=== PATIENT | male | born 1960 | race Caucasian/White ===

== ENCOUNTER 2023-02-11 03:41 | Day surgery (SDC) | payer OTHER, SELFPAY ==
[2023-01-28 14:05] VITALS: BMI 24.1
[2023-02-11 11:42] VITALS: BP 125/71; PULSE 62; RESP 18; TEMP 36.1; O2SAT 100
[2023-02-11] MEDS: LACTATED RINGERS 1,000 ML 150 ML IV CONT (11:51)
--- NOTE | 2023-02-11 12:13 | PM.HPGS ---
History of Present Illness History of Present Illness Consent: Risks, benefits, and alternatives have been discussed and questions answered. Patient agrees to proceed with procedure. Chief complaint: neoplasm screening Narrative: Carlos Deluca is a 62 year old male Referred for colon cancer screening. His last colonoscopy 12 years ago was unremarkable. Review of Systems Review of Systems: All systems reviewed & are unremarkable except as noted in HPI and below PMFSH Past Medical History Medical History Chronic pain CTS (carpal tunnel syndrome) Erectile dysfunction Hypertension Hypothyroidism Surgical History Surgical History H/O removal of cyst Cyst removed from testicle April 2019 Family History Family History Father Hyperlipidemia CHF (congestive heart failure) Sibling Patient's brother is Patient's brother is in good health Father Family history of elevated blood lipids Family history of congestive heart failure Family history of hypercholesterolemia Father Asthma Family history of coronary artery disease Mother Family history of hypothyroidism Other Family history of allergic disorder Family history of malignant neoplasm Hypertension Social History Social History Smoking status: Never smoker Alcohol intake: current Lack of Transportation: No Lack of Food: Never True Current Housing: I Have Housing Concerned About Future Housing: No Difficulty Paying Gas/Electric Bills: No Difficulty Paying for Meds: No Currently Unemployed: No Education: Trade/Vocational Certificate Difficulty w/ Childcare or Family Care: No Meds Home Medications and Allergies Home Medications Medication Instructions Recorded Confirmed Type aspirin 81 mg tablet,delayed 81 mg PO DAILY 07/16/20 01/28/23 History release (Adult Low Dose Aspirin) omeprazole 20 mg capsule,delayed 20 mg PO DAILY #90 caps 07/16/20 01/28/23 Rx release lisinopril 10 mg tablet 10 mg PO DAILY #90 tabs 06/15/22 01/28/23 Rx levothyroxine 75 mcg tablet 75 mcg PO DAILY #90 tabs 11/17/22 01/28/23 Rx Allergies Allergy/AdvReac Type Severity Reaction Status Date / Time No Known Allergies Allergy Unknown Verified 02/11/23 11:41 Vital Signs Vital Signs - 24 hr 02/11/23 11:42 Temperature 36.1 C L Pulse Rate 62 Respiratory Rate 18 Blood Pressure 125/71 Pulse Oximetry 100 Oxygen Delivery Room Air Exam Const: General: alert Orientation/consciousness: patient oriented x3 Resp: Auscultation: clear to auscultation bilaterally Cardio: Rhythm: regular rhythm GI: GI Palp: Yes Soft to palpation and No Tenderness to palpation present (GI) Neuro: General: patient oriented x3 Assessment and Plan Assessment and plan (1) Screening for colon cancer: Code(s): Z12.11 - Encounter for screening for malignant neoplasm of colon Status: Acute Assessment and Plan: Colonoscopy with possible biopsy or polypectomy or cautery or injection of substances.
--- NOTE | 2023-02-11 12:42 | WPDANESEPPF ---
Anes - Initial Pre Proc Eval Procedure: Operation Date: 02/11/23 13:00 Proposed Procedures p Screening Colonoscopy - Alfredo Lacey MD Date/Time: 02/11/23 12:42 Surgeon: Alfredo Lacey MD Pre Op Diagnosis: neoplasm screening Patient Data Age: 62 Gender: M Height: 1.8 m Weight: 78.1 kg Last Vital Signs Temp 97.0 F L 02/11/23 11:42 Pulse 62 02/11/23 11:42 Resp 18 02/11/23 11:42 BP 125/71 02/11/23 11:42 Pulse Ox 100 02/11/23 11:42 O2 Del Method Room Air 02/11/23 11:42 Allergies Allergy/AdvReac Type Severity Reaction Status Date / Time No Known Allergies Allergy Unknown Verified 02/11/23 11:41 Home Medications Medication Instructions Recorded Confirmed Type aspirin 81 mg tablet,delayed 81 mg PO DAILY 07/16/20 01/28/23 History release (Adult Low Dose Aspirin) omeprazole 20 mg capsule,delayed 20 mg PO DAILY #90 caps 07/16/20 01/28/23 Rx release lisinopril 10 mg tablet 10 mg PO DAILY #90 tabs 06/15/22 01/28/23 Rx levothyroxine 75 mcg tablet 75 mcg PO DAILY #90 tabs 11/17/22 01/28/23 Rx Patient hx anesthesia problems: none Family hx anesthesia problems: none Results Review: All pre-operative results and documents have been reviewed as part of the pre-operative evaluation. [facility] Past Medical History Medical History Chronic pain CTS (carpal tunnel syndrome) Erectile dysfunction Hypertension Hypothyroidism Surgical History Surgical History H/O removal of cyst Cyst removed from testicle April 2019 Family History Family History Father Hyperlipidemia CHF (congestive heart failure) Sibling Patient's brother is Patient's brother is in good health Father Family history of elevated blood lipids Family history of congestive heart failure Family history of hypercholesterolemia Father Asthma Family history of coronary artery disease Mother Family history of hypothyroidism Other Family history of allergic disorder Family history of malignant neoplasm Hypertension Social History Social History Smoking status: Never smoker Alcohol intake: current Lack of Transportation: No Lack of Food: Never True Current Housing: I Have Housing Concerned About Future Housing: No Difficulty Paying Gas/Electric Bills: No Difficulty Paying for Meds: No Currently Unemployed: No Education: Trade/Vocational Certificate Difficulty w/ Childcare or Family Care: No Anes - Eval Final PreProcedure Day of Procedure 02/11/23 12:42 Patient weight: normal Heart: regular rate and rhythm Lungs: clear to auscultation Airway: Mallampati scale class II Neurological: alert and oriented Last oral intake: >/= 8 hours ASA classification: II Emergent: no Anesthetic plan: proceed Anesthesia type and monitoring: general GIVS and standard monitoring Results Review: All pre-operative results and documents have been reviewed as part of the pre-operative evaluation. Informed Consent: The patient's anesthetic plan and its attendant risks and benefits were discussed with the patient/family/POA. Questions were solicited and answers provided to the satisfaction of the patient/family/POA.
[2023-02-11 13:02] VITALS: BP 89/50; PULSE 60; RESP 20; O2SAT 95
[2023-02-11 13:12] VITALS: BP 111/66; PULSE 62; RESP 18; O2SAT 97
== END 2023-02-11 13:34 | disposition home or self-care (01) ==
PROVIDERS: PCP Internal Medicine; Visit Provider Internal Medicine Gastroenterology
PROC: 0DJD8ZZ Inspection of Lower Intestinal Tract, Via Natural or Artificial Opening Endoscopic (ICD-10-PCS; CPT 45378; principal; 2023-02-11 13:00)
DX: Z12.11 Encounter for screening for malignant neoplasm of colon (principal); K57.30 Diverticulosis of large intestine without perforation or abscess without bleeding; I10 Essential (primary) hypertension; E03.9 Hypothyroidism, unspecified; Z79.82 Long term (current) use of aspirin
CPT/HCPCS: 45378; J2001; J2704; J7120

== ENCOUNTER → 2023-07-01 11:58 | Outpatient (CLI) | payer BC, SELFPAY ==
--- NOTE | ~2023-07-01 | XR_ITS ---
XR lumbar spine min 4V DATE: 07/01/2023 12:19 INDICATION: Low back pain, left leg numbness TECHNIQUE: AP, lateral, coned lateral lumbosacral and bilateral oblique views COMPARISON: None FINDINGS: Normal alignment of the lumbar spine. No fracture or bone destruction, spondylolysis or spo ndylolisthesis. Lumbar pedicles are intact. Lumbar and lumbosacral interspaces are relatively well preserved. Minimal lumbar vertebral body degen erative spurring. The sacroiliac joints are unremarkable. IMPRESSION: Mild degenerative change Reviewed, dictated and finalized at location [facility]. [employer] IMPRESSION: Mild degenerative change
== END ==
PROVIDERS: PCP Nurse Practitioner; Visit Provider Nurse Practitioner
DX: M51.36 Other intervertebral disc degeneration, lumbar region (principal)
CPT/HCPCS: 72110

== ENCOUNTER 2023-09-20 13:00 | Outpatient (RCR) | payer BC, SELFPAY ==
--- NOTE | 2023-07-08 15:48 | PTOPEVAL1 ---
Assessment and note entered by Sharon Vasquez, PT, DPT Evaluation Information Assessment Status Evaluation Diagnosis low back pain Onset 10 years Subjective Information Pt reports intermittent low back pain over the last 10 years with an increase in frequency and intensity in the last 1-2 years. He reports pain when bending over/working, prolonged standing, and with prolonged sitting. He states stretching and moves around makes his back feel better. He states his back feels unstable at times, he states this is worse if he has a day of rest. He reports persistent L thigh numbness for the last year. 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 Reported Pain Level Pain Score 0: Self Report Assessment PT Clinical Summary Carlos presents to therapy today for his initial evaluation with a diagnosis of low back pain. Today her demonstrates good LE and lumbar mobility , when moving functionally he relies on his LE mobility and does not adequately stabilize his lumbar spine. He demonstrates good strength functionally. Time spend today issuing HEP and reviewing body/lifting mechanics to incorporate into daily activities. Pt elected to complete his HEP IND and to practice better lifting techniques when at work, he plans to follow up if needed. Plan of Care Interventions Electrical Stimulation,Gait Training,Hot Pack/Cold Pack,Manual Therapy,Patient/Caregiver Educati, Therapeutic Activities,Therapeutic Exercise PT Services Indicated Yes Treatment Frequency and follow up if needed Duration These treatments will address the objective and functional deficits as defined above. The patient will be advanced safely and appropriately in order for the patient to progress towards his/her prior level of function. Additional exercises will be introduced and as well as a comprehensive home exercise program upon discharge, if needed, ?to ensure carryover of functional gains achieved in the clinic. This treatment plan has been reviewed and agreement upon by the patient.
--- NOTE | 2023-09-20 13:48 | PTOPDC ---
Assessment and note entered by Sharon Vasquez, PT, DPT Evaluation Information Assessment Status discharge Diagnosis low back pain Onset 10 years Subjective Information Pt reports he has been doing the HEP 3x/wk for 2 months. He states it feels like his back has gotten stronger without as much pain and instability. He states about 2 weeks ago he woke up and his back did not feel right, he states bent over to pick something up and he felt a sharp pain in his lower back. Since then he was been sore above and before where the pain was. Reported Pain Level Pain Score 0: Self Report Assessment PT Clinical Summary Carlos presents to therapy today for his progress report after 2 month participation in his HEP to treat his a diagnosis of low back pain. His HEP was progressed and lifting mechanics were reviewed . He states he is progressing well. He no longer requires skilled therapy services and will be discharged at this time. Plan of Care PT Services Indicated No
== END 2023-09-20 14:12 | disposition home or self-care (01) ==
LOC: ANHGOSHPT 13:00
PROVIDERS: PCP Nurse Practitioner; Visit Provider Nurse Practitioner
DX: M54.50 Low back pain, unspecified (principal)
CPT/HCPCS: 97110; 97161; 97530

== ENCOUNTER 2024-12-24 10:39 | Outpatient (CLI) | payer BC, SELFPAY ==
--- NOTE | ~2024-12-24 | US_ITS ---
Abdominal Sonogram: Real-time sonographic imaging of the abdomen was performed. Clinical History: Abdominal pain Findings: The liver appears normal with no evidence of mass lesion or bile duct dilatation. Main por bhavesh vein demonstrates normal direction of flow. The spleen is normal in size without evidence of foca l lesion. The gallbladder is well distended, and demonstrates probable subcentimeter gallbladder wal l polyps. The common bile duct measures 4 mm. The visualized pancreas, aorta, and IVC are unremarkab le. The right kidney measures 8.9 cm in length and the left kidney measures 11.9 cm. There is no hy dronephrosis or renal calculus. Fat-containing umbilical hernia noted. Impression: Fat-containing umbilical hernia. Probable subcentimeter gallbladder wall polyps. Reviewed, dictated and finalized at [facility]. Impression: Fat-containing umbilical hernia. Probable subcentimeter gallbladder wall polyps.
== END 2024-12-24 10:40 | disposition home or self-care (01) ==
PROVIDERS: PCP Nurse Practitioner; Visit Provider Nurse Practitioner
DX: K42.9 Umbilical hernia without obstruction or gangrene (principal)
CPT/HCPCS: 76700

== ENCOUNTER 2025-05-02 10:13 | Outpatient (CLI) | payer BC, SELFPAY | END 2025-05-02 10:14 | disposition home or self-care (01) | LOC: ANHGOSHLAB 10:14 | PROVIDERS: PCP Nurse Practitioner; Visit Provider Nurse Practitioner | DX: R51.9 Headache, unspecified (principal) | CPT/HCPCS: 36415; 85652 ==